=== PATIENT | male | born 2000 | race Caucasian/White ===

== ENCOUNTER 2020-01-10 16:31 | Emergency (ER) | payer OTHER, SELFPAY ==
[2020-01-10 16:42] VITALS: BP 126/77; PULSE 70; RESP 16; TEMP 37; O2SAT 97; BMI 17.9
[2020-01-10] MEDS: SODIUM CHLORIDE 0.9% 1,000 ML 1000 ML IV (18:23)
[2020-01-10] MEDS: ONDANSETRON 4 MG/2 ML INJ IV (18:23)
[2020-01-10 18:30] LABS: Add Manual Diff / Slide Review NO; Basophils Absolute Auto 100 /uL (0-100); Basophils Percent Auto 0.6 % (0-2); Eosinophils Absolute Auto 100 /uL (0-450); Eosinophils Percent Auto 0.7 % (2-4); Hematocrit 45.4 % (41-53); Hemoglobin 15.4 g/dL (13.5-17.5); Lymphocytes Absolute Auto 2700 /uL (1100-4500); Lymphocytes Percent Auto 29.6 % (25-40); Mean Corpuscular HGB Conc 33.9 % (30-36); Mean Corpuscular Hemoglobin 30.2 PG (26-34); Mean Corpuscular Volume 89.1 fL (80-100); Monocytes Absolute Auto 700 /uL (0-900); Monocytes Percent Auto 7.8 % (3-14); Neutrophils Absolute Auto 5500 /uL (1500-7000); Neutrophils Percent Auto 61.3 % (50-75); Platelet Count 255 X10^3/uL (150-400); Red Cell Distribution Width 12.9 % (11.6-14.8)
[2020-01-10 19:33] LABS: Prothrombin Time 11.7 SECONDS (10.1-12.7)
[2020-01-10 19:36] LABS: PTT Partial Thromboplastin Tim 33 SECONDS (26.4-36.2)
[2020-01-10 19:40] LABS: Alanine Aminotransferase 15 IU/L (<50); Albumin Globulin Ratio 1.7 (1.0-2.8); Alkaline Phosphatase 58 U/L (38-126); Aspartate Aminotransferase 24 IU/L (17-59); BUN Creatinine Ratio 13.9 (6-22); Bilirubin Total 0.6 mg/dL (0.2-1.3); Blood Urea Nitrogen 10 mg/dL (9-20); Calcium 8.7 mg/dL (8.4-10.2); Carbon Dioxide 27 mmol/L (22-32); Chloride 106 mmol/L (98-107); Estimated Glomerular Filt Rate > 60.0 mL/min (>60); Globulin 2.4 g/dL (1.7-4.1); Glucose 98 mg/dL (70-100); HEMOLYSIS < 15 (0-50); Lipase 20 U/L (23-300); Sodium 139 mmol/L (137-145); Total Protein 6.4 g/dL (6.3-8.2)
[2020-01-10 19:41] LABS: Ketones (Beta-Hydroxybutyrate) 0.12 mmol/L (<0.27)
[2020-01-10 20:15] VITALS: BP 109/58; PULSE 72; RESP 16; O2SAT 99
--- NOTE | 2020-01-10 21:09 | DI.CT.S_ITS ---
PROCEDURE: CT CHEST ABD PEL W CON INDICATIONS: chest pain, abdominal pain, unexplained weight loss, fatigue TECHNIQUE: After the administration of intravenous contrast, 5 mm thick sections acquired from the lung apices to the symphysis. 5 mm coronal and sagittal reformats were performed, with additional 7 mm MIP reformats through the lungs. For radiation dose reduction, the following was used: automated exposure control, adjustment of mA and/or kV according to patient size. COMPARISON: None. FINDINGS: Image quality: Excellent. CHEST: Lungs and pleura: No acute airspace opacities. No pleural effusions or pneumothorax. Central and peripheral airways appear patent and normal in caliber. Mediastinum: Heart size is normal. No pericardial effusion. No mediastinal or hilar adenopathy by size criteria. Thoracic aorta and central pulmonary arteries are normal in size. Esophagus is normal in caliber. No hiatal hernia. Chest wall: No axillary or supraclavicular adenopathy by size criteria. Thyroid gland is within normal limits where visualized. ABDOMEN: Solid organs: Liver is normal in size and enhancement. Gallbladder is normal. Biliary system is non dilated. Pancreas enhances normally. Spleen is normal in size and enhancement. No adrenal nodules. Kidneys demonstrate normal size and enhancement, without hydronephrosis. Peritoneum and bowel: Bowel loops demonstrate normal wall thickness and caliber. No free fluid or air. The appendix is normal. Nodes and vessels: No retroperitoneal or mesenteric adenopathy by size criteria. Aorta and inferior vena cava are normal in size. Miscellaneous: No ventral hernias. PELVIS: Genitourinary: Bladder wall thickness is normal. Miscellaneous: No inguinal hernias or adenopathy. Bones: No suspicious bony lesions. No vertebral body compression fractures. IMPRESSION: 1. No acute disease process. 2. No lung consolidation or pleural effusions. 3. No free intraperitoneal fluid or air. 4. No dilated loops of bowel. 5. No lymphadenopathy based on size criteria. Dictated by: Zahida Farris MD, PhD on 01/11/2020 at 7:38 Approved by: Zahida Farris MD, PhD on 01/11/2020 at 7:43
--- NOTE | 2020-01-10 22:51 | ED.ABDPAIN ---
HPI - Abdominal Pain General Chief Complaint: Abdominal Pain Stated Complaint: chest and abdominal pain Time Seen by Provider: 01/10/20 18:12 Source: patient Mode of arrival: Ambulatory Limitations: no limitations History of Present Illness HPI narrative: 19-year-old male nonsmoker presents with his mother and a chief complaint ongoing difficulties of episodes of chest pain, abdominal pain and foul-smelling diarrhea for the past few weeks. He had been feeling unwell with nonspecific complaints and had dental pain. He went to his dentist and it was presumed that a dental procedure would help fix the cause of his feeling unwell. In the aftermath he was on 2 weeks of antibiotics and subsequent to that he has developed ongoing abdominal discomfort, poor appetite and foul-smelling diarrhea. He has had no shortness of breath, nausea, vomiting. He has had no fever or chills. He denies any pattern to his abdominal pain. He denies any blood in his stool. He denies recent travel or exposure to bad food. He states he has lost about 11 lb MD complaint: abdominal pain Onset (ago): week(s) Pain Consistency: intermittent Location: diffuse Quality: cramping Radiation: none Relieving factors: nothing Exacerbating factors: nothing Context: recent antibiotic use Related Data Home Medications Medication Instructions Recorded Confirmed No Known Home Medications 01/10/20 01/10/20 Allergies Allergy/AdvReac Type Severity Reaction Status Date / Time No Known Drug Allergies Allergy Verified 01/10/20 16:48 Review of Systems Constitutional Constitutional: Denies chills, Denies fatigue, Denies fever(s), Denies frequent falls, Denies lethargy and Denies weakness Eyes Eyes: Denies change in vision, Denies eye discharge, Denies irritation and Denies loss of vision ENT Ears, Nose, Mouth, and Throat: Denies change in voice, Denies dizziness, Denies neck pain, Denies sore throat and Denies throat swelling Cardiovascular Cardiovascular: Denies chest pain, Denies irregular heart rhythm, Denies lightheadedness, Denies palpitations, Denies dyspnea, Denies dyspnea on exertion and Denies orthopnea Respiratory Respiratory: Denies cough, Denies dyspnea, Denies dyspnea on exertion and Denies wheezing Gastrointestinal Gastrointestinal: Reports abdominal pain, Denies change in bowel habits, Reports diarrhea, Denies nausea and Denies vomiting Musculoskeletal Musculoskeletal: Denies neck pain and Denies numbness Integumentary/Breasts Skin/Breast: Denies pruritus, Denies erythema, Denies rash and Denies wounds Neurologic Neurologic: Denies behavioral changes, Denies confusion, Denies dizziness, Denies frequent falls, Denies loss of vision, Denies numbness and Denies weakness Psychiatric Psychiatric: Denies anxiety, Denies behavioral changes, Denies confusion, Denies depression, Denies homicidal ideation and Denies suicidal ideation Endocrine Endocrine: Denies fatigue, Denies flushing and Denies palpitations Hematologic/Lymphatic Hematologic/Lymphatic: Denies easy bruising Allergic/Immunologic Allergic/Immunologic: Denies urticaria, Denies throat swelling and Denies wheezing Patient History Social History Smoking Status: Current some day smoker Smoking Status: Current some day smoker tobacco type: cigarettes alcohol intake frequency: a few times a month Substance Use Type: does not use Exam Narrative Exam Narrative: GENERAL: [19] year old patient appears stated age. Well-nourished, well-developed patient, in mild distress. HEAD: Atraumatic. Normocephalic. EYES: Pupils equal round and reactive. Extraocular motions intact. No scleral icterus. No injection or drainage. ENT: Nose without bleeding, purulent drainage. Throat without erythema, tonsillar hypertrophy or exudate. Airway patent. NECK: Trachea midline. Non tender CARDIOVASCULAR: Regular rate and rhythm without murmurs, gallops, or rubs. RESPIRATORY: Clear to auscultation. Breath sounds equal bilaterally. No wheezes, rales, or rhonchi. GASTROINTESTINAL: Abdomen soft, non-tender, nondistended. EXTREMITIES: No edema or joint tenderness. BACK: Nontender without deformity or crepitance. No flank tenderness. NEURO: AOx3. SKIN: No rash or erythema of visible areas Initial Vital Signs Initial Vital Signs: Vital Signs Temperature 98.6 F 01/10/20 16:42 Pulse Rate 70 01/10/20 16:42 Respiratory Rate 16 01/10/20 16:42 Blood Pressure 126/77 01/10/20 16:42 Pulse Oximetry 97 01/10/20 16:42 Course Orders Ordered: Discontinued Medications Sodium Chloride (Normal Saline 0.9%) 1,000 mls @ 1,000 mls/hr IV BOLUS ONE Stop: 01/10/20 18:42 Last Infusion: 01/10/20 19:45 Dose: 0 mls/hr Documented by: Admin: 01/10/20 18:23 Dose: 1,000 mls/hr Documented by: SAHIL Ondansetron HCl (Zofran) 4 mg IV NOW ONE Stop: 01/10/20 17:43 Last Admin: 01/10/20 18:23 Dose: 4 mg Documented by: SAHIL Vital Signs Vital signs: Vital Signs - 8 hr 01/10/20 23:03 Pulse Rate 56 L Blood Pressure 100/62 Pulse Oximetry 98 MDM - Abdominal Pain Lab Data Result diagrams: 01/10/20 18:18 01/10/20 19:19 Labs: Lab Results 01/10/20 01/10/20 01/10/20 Range/Units 18:18 19:19 19:19 WBC 9.0 (4.5-11.0) X10^3/uL RBC 5.10 (4.5-5.9) X10^6/uL Hgb 15.4 (13.5-17.5) g/dL Hct 45.4 (41-53) % MCV 89.1 (80-100) fL MCH 30.2 (26-34) PG MCHC 33.9 (30-36) % RDW 12.9 (11.6-14.8) % Plt Count 255 (150-400) X10^3/uL Neut % (Auto) 61.3 (50-75) % Lymph % (Auto) 29.6 (25-40) % [place] % (Auto) 7.8 (3-14) % Eos % (Auto) 0.7 L (2-4) % Baso % (Auto) 0.6 (0-2) % Neut # (Auto) 5500 (3780-3829) /uL Lymph # (Auto) 2700 (5921-8654) /uL [place] # (Auto) 700 (0-900) /uL Eos # (Auto) 100 (0-450) /uL Baso # (Auto) 100 (0-100) /uL PT 11.7 (10.1-12.7) SECONDS INR 1.0 (0.9-1.3) APTT 33 (26.4-36.2) SECONDS Sodium 139 (137-145) mmol/L Potassium 4.0 (3.4-5.1) mmol/L Chloride 106 (98-107) mmol/L Carbon Dioxide 27 (22-32) mmol/L BUN 10 (9-20) mg/dL Creatinine 0.72 (0.66-1.25) mg/dL Estimated GFR > 60.0 (>60) mL/min BUN/Creatinine Ratio 13.9 (6-22) Glucose 98 (70-100) mg/dL Calcium 8.7 (8.4-10.2) mg/dL Total Bilirubin 0.6 (0.2-1.3) mg/dL AST 24 (17-59) IU/L ALT 15 (<50) IU/L Alkaline Phosphatase 58 (38-126) U/L Total Protein 6.4 (6.3-8.2) g/dL Albumin 4.0 (3.5-5.0) g/dL Globulin 2.4 (1.7-4.1) g/dL Albumin/Globulin Ratio 1.7 (1.0-2.8) Lipase 20 L (23-300) U/L Ketones (<0.27) mmol/L C. difficile Tox (PCR) 01/10/20 01/10/20 Range/Units 19:19 19:19 WBC (4.5-11.0) X10^3/uL RBC (4.5-5.9) X10^6/uL Hgb (13.5-17.5) g/dL Hct (41-53) % MCV (80-100) fL MCH (26-34) PG MCHC (30-36) % RDW (11.6-14.8) % Plt Count (150-400) X10^3/uL Neut % (Auto) (50-75) % Lymph % (Auto) (25-40) % [place] % (Auto) (3-14) % Eos % (Auto) (2-4) % Baso % (Auto) (0-2) % Neut # (Auto) (5627-3231) /uL Lymph # (Auto) (1227-0841) /uL [place]ahan # (Auto) (0-900) /uL Eos # (Auto) (0-450) /uL Baso # (Auto) (0-100) /uL PT (10.1-12.7) SECONDS INR (0.9-1.3) APTT (26.4-36.2) SECONDS Sodium (137-145) mmol/L Potassium (3.4-5.1) mmol/L Chloride (98-107) mmol/L Carbon Dioxide (22-32) mmol/L BUN (9-20) mg/dL Creatinine (0.66-1.25) mg/dL Estimated GFR (>60) mL/min BUN/Creatinine Ratio (6-22) Glucose (70-100) mg/dL Calcium (8.4-10.2) mg/dL Total Bilirubin (0.2-1.3) mg/dL AST (17-59) IU/L ALT (<50) IU/L Alkaline Phosphatase (38-126) U/L Total Protein (6.3-8.2) g/dL Albumin (3.5-5.0) g/dL Globulin (1.7-4.1) g/dL Albumin/Globulin Ratio (1.0-2.8) Lipase (23-300) U/L Ketones 0.12 (<0.27) mmol/L C. difficile Tox (PCR) Cancelled Point of care testing: Urine Dip Bedside Urine Glucose Negative Bedside Urine Bilirubin - Negative Bedside Urine Ketone - Negative Urine Specific [place] 1.015 Bedside Urine Occult Blood - Negative Bedside Urine pH 7.0 Bedside Urine Protein - Negative Bedside Urine Urobilinogen - Negative Bedside Urine Nitrite - Negative Bedside Urine Leukocytes - Negative Esterase Imaging Data CT scan - abdomen/pelvis: Radiologist's Impression: No acute findings MDM Narrative Medical decision making narrative: Extensive workup to evaluate patient's complaints. There is concern for possible C diff colitis given recent use of antibiotics, however there is no fever, elevated white blood cell count and patient is unable to produce a stool sample while being in the department for multiple hours. Mother states that a few family members have had lymphoma and as a result it was an easier decision order advanced imaging. There were no significant findings in our workup. Discussion with the patient regarding the possibility of C diff but it is unreasonable to treat without a stool sample provided diagnosis. He is encouraged to obtain follow-up and try to eat drink when he can. Return precautions are given and questions answered to his apparent satisfaction. Discharge Plan Departure Patient Disposition: Home Clinical Impression: Abnormal weight loss Diarrhea Qualifiers: Diarrhea type: unspecified type Qualified Code(s): R19.7 - Diarrhea, unspecified Discharge Date/Time: 01/10/20 23:05 Instructions: Diarrhea, DI for Weight Loss Activity Restrictions/Additional Instructions: *You have been diagnosed with [unplanned weight loss, foul-smelling diarrhea, possible C diff but without a sample it is unclear at this point] *What to do: *Take medications as directed, please add an [id number] probiotic *Follow up with your primary care provider in 2-3 days, call for an appointment. Let them know you were seen in the Emergency Department and that we ask that you be seen in follow up *Return to ER if you should have any new, worsening or concerning symptoms Prescriptions: No Action No Known Home Medications RF: 0 Referrals: [facility] [Outside]
[2020-01-10 23:03] VITALS: BP 100/62; PULSE 56; O2SAT 98
== END 2020-01-10 23:05 | disposition home or self-care (01) ==
PROVIDERS: Emergency Medicine; Emergency Provider Emergency Medicine; Family Provider Pediatrics
DX: R63.4 Abnormal weight loss (principal); R10.9 Unspecified abdominal pain; R19.7 Diarrhea, unspecified; D72.829 Elevated white blood cell count, unspecified; R07.9 Chest pain, unspecified
CPT/HCPCS: 36415; 71260; 74177; 80053; 81003; 82009; 83690; 85025; 85610; 85730; 96361; 96374; 99284; J2405; Q9967

== ENCOUNTER → 2020-01-24 11:37 | Outpatient (CLI) | payer OTHER, MEDICAID, SELFPAY ==
[2020-01-24 13:11] LABS: TSH w/ Reflex to FT4 1.63 uIU/mL (0.47-4.68)
[2020-01-26 13:10] LABS: H. Pylori Antigen Stool Negative (Negative)
[2020-01-27 13:35] LABS: Alanine Aminotransferase 17 IU/L (<50); Albumin 4.7 g/dL (3.5-5.0); Albumin Globulin Ratio 1.7 (1.0-2.8); Alkaline Phosphatase 66 U/L (38-126); Aspartate Aminotransferase 28 IU/L (17-59); BUN Creatinine Ratio 13.8 (6-22); Bilirubin Total 0.7 mg/dL (0.2-1.3); Blood Urea Nitrogen 12 mg/dL (9-20); Carbon Dioxide 29 mmol/L (22-32); Chloride 103 mmol/L (98-107); Estimated Glomerular Filt Rate > 60.0 mL/min (>60); Globulin 2.8 g/dL (1.7-4.1); Glucose 97 mg/dL (70-100); HEMOLYSIS < 15 (0-50); Potassium 4.4 mmol/L (3.4-5.1); Sodium 141 mmol/L (137-145); Total Protein 7.5 g/dL (6.3-8.2)
== END ==
PROVIDERS: Family Provider Pediatrics; PCP Registered Nurse Diabetes Educator; Referring Provider Registered Nurse Diabetes Educator; Visit Provider Registered Nurse Diabetes Educator
DX: R00.2 Palpitations (principal); R07.89 Other chest pain; R14.2 Eructation
CPT/HCPCS: 36415; 80053; 84443; 87338

== ENCOUNTER 2020-01-28 14:27 | Emergency (ER) | payer OTHER, MEDICAID, SELFPAY ==
[2020-01-28] VITALS (9 sets, daily range): BP systolic 105–137; BP diastolic 52–63; PULSE 69–102; RESP 17–18; TEMP 36.7–37.4; O2SAT 96–99; BMI 17.9
[2020-01-28 16:11] LABS: Add Manual Diff / Slide Review NO; Basophils Absolute Auto 0 /uL (0-100); Basophils Percent Auto 0.3 % (0-2); Eosinophils Absolute Auto 0 /uL (0-450); Eosinophils Percent Auto 0.1 % (2-4); Hematocrit 44.2 % (41-53); Lymphocytes Absolute Auto 1300 /uL (1100-4500); Lymphocytes Percent Auto 10.9 % (25-40); Mean Corpuscular HGB Conc 34.1 % (30-36); Mean Corpuscular Hemoglobin 29.8 PG (26-34); Mean Corpuscular Volume 87.6 fL (80-100); Monocytes Absolute Auto 700 /uL (0-900); Monocytes Percent Auto 5.4 % (3-14); Neutrophils Absolute Auto 10300 /uL (1500-7000); Neutrophils Percent Auto 83.3 % (50-75); Platelet Count 258 X10^3/uL (150-400); Red Blood Cell Count 5.04 X10^6/uL (4.5-5.9); Red Cell Distribution Width 12.5 % (11.6-14.8); White Blood Cell Count 12.4 X10^3/uL (4.5-11.0)
[2020-01-28 16:20] LABS: PTT Partial Thromboplastin Tim 33 SECONDS (26.4-36.2)
[2020-01-28 16:23] LABS: Alanine Aminotransferase 24 IU/L (<50); Albumin 4.9 g/dL (3.5-5.0); Albumin Globulin Ratio 1.6 (1.0-2.8); Alkaline Phosphatase 66 U/L (38-126); Amylase 60 U/L (30-110); Aspartate Aminotransferase 31 IU/L (17-59); BUN Creatinine Ratio 19.4 (6-22); Bilirubin Total 0.9 mg/dL (0.2-1.3); Blood Urea Nitrogen 14 mg/dL (9-20); Calcium 9.7 mg/dL (8.4-10.2); Carbon Dioxide 30 mmol/L (22-32); Chloride 101 mmol/L (98-107); Creatine Kinase 140 U/L (55-170); Estimated Glomerular Filt Rate > 60.0 mL/min (>60); Globulin 3.1 g/dL (1.7-4.1); Glucose 89 mg/dL (70-100); HEMOLYSIS < 15 (0-50); Lipase 27 U/L (23-300); Magnesium 1.8 mg/dL (1.6-2.3); Sodium 139 mmol/L (137-145)
[2020-01-28] MEDS: ONDANSETRON 4 MG/2 ML INJ IV (16:24)
[2020-01-28] MEDS: SODIUM CHLORIDE 0.9% 1,000 ML 1000 ML IV (16:24)
[2020-01-28 16:34] LABS: Troponin I < 0.012 ng/mL (0.01-0.034)
[2020-01-28 16:38] LABS: CKMB % Relative Index 0.9 % (1.5-5.0); Creatine Kinase MB 1.19 ng/mL (<2.37)
--- NOTE | 2020-01-28 16:38 | DI.RAD.S_ITS ---
PROCEDURE: XR ACUTE ABDOMEN SERIES INDICATIONS: vomiting, chest pain TECHNIQUE: One view chest and two views of the abdomen were acquired. COMPARISON: None. FINDINGS: Surgical changes and devices: None. Chest: Lungs are clear. Heart size is normal. No pleural effusions. No pneumoperitoneum. Abdomen: Bowel gas pattern is normal. No suspicious calcifications. Visualized solid organ contours appear normal. Bones: No suspicious bony lesions. IMPRESSION: No acute cardiopulmonary findings. No acute intra-abdominal findings. Dictated by: Italia Morin M.D. on 01/28/2020 at 15:59 Approved by: Italia Morin M.D. on 01/28/2020 at 15:59
[2020-01-28] MEDS: KETOROLAC 60 MG/2 ML VIAL 30 MG IV (16:44)
[2020-01-28] MEDS: CYCLOBENZAPRINE 10 MG TABLET PO (18:08)
--- NOTE | 2020-01-28 20:05 | ED.HA ---
HPI - Headache <LAN Maharaj-BC - Last Filed: 01/28/20 20:24> General Chief Complaint: Headache Stated Complaint: SOB, vomiting, pain in neck, headache Time Seen by Provider: 01/28/20 14:57 Source: patient Mode of arrival: Ambulatory Limitations: no limitations History of Present Illness HPI Narrative: The patient is a 19-year-old male who presents with a chief complaint of multiple medical complaints with his mother. Ongoing episodes of chest pain, most recently a chest pain episode about 15 minutes this morning, nausea and vomiting that started at 3:00 a.m. as well as a headache and general neck pain. He states that the neck pain is been going on for weeks and or months. However got much worse this morning his mother is concerned about meningitis. To discuss his neck pain that has been ongoing for months. He has had some low-grade fevers, but is afebrile upon presentation to the emergency department. Primary care providers and working with the patient and has had multiple objectives, referrals, patient has a pending referral to ENT, Holter monitor pending, multiple stool studies pending. He had a negative H pylori stool test, as well as a negative coronavirus test. Related Data Previous Rx's Medication Instructions Recorded omeprazole 20 mg capsule,delayed 20 mg PO DAILY #14 cap 01/13/20 release cyclobenzaprine 10 mg PO TID PRN #14 tab 01/28/20 ketorolac 10 mg PO TID PRN #15 tab 01/28/20 ondansetron 4 mg PO Q6H PRN #20 tab 01/28/20 Allergies Allergy/AdvReac Type Severity Reaction Status Date / Time No Known Drug Allergies Allergy Verified 01/28/20 14:36 Review of Systems <ALEX Maharaj - Last Filed: 01/28/20 20:24> Review of Systems Narrative: GENERAL: See HPI HEENT: Denies sinus pain, ear pain, sore throat, difficulty swallowing, dizziness. RESPIRATORY: Denies dyspnea, cough, wheezing, hemoptysis, sputum. CARDIOVASCULAR: Denies chest pain, palpitations, orthopnea, edema, GASTROINTESTINAL: See HPI : Denies dysuria, frequency, incontinence, hematuria, urinary retention. MUSCULOSKELETAL: See HPI SKIN: Denies rash, skin lesions, or other NEUROLOGIC: See HPI PSYCHIATRIC: No concerning psychosocial issues. 12 point review of systems is negative except for those stated above Patient History <ALEX Maharaj - Last Filed: 01/28/20 20:24> Medical History (Updated 01/28/20 @ 19:18 by ALEX Maharaj) Atypical chest pain (Acute) Belching (Acute) Palpitations (Acute) Social History Smoking Status: Former smoker Smoking Status: Former smoker tobacco type: cigarettes alcohol intake frequency: 0-2 drinks per day Substance Use Type: does not use Exam <ALEX Maharaj - Last Filed: 01/28/20 20:24> Narrative Exam Narrative: GENERAL: Thin alert male in no acute distress. HEAD: Atraumatic. Normocephalic. No temporal or scalp tenderness. EYES: Pupils equal round and reactive. Extraocular motions intact. No scleral icterus. No injection or drainage. ENT: Nose without bleeding, purulent drainage or septal hematoma. Throat without erythema, tonsillar hypertrophy or exudate. Slightly dry mucous membranes Uvula midline. Airway patent. NECK: Trachea midline. No JVD or lymphadenopathy. Supple, nontender, no meningeal signs. Able to fully put chin to chest, look up at ceiling, shake head no Rodriguez. Full range of neck motion noted. CARDIOVASCULAR: Regular rate and rhythm RESPIRATORY: Clear to auscultation. Breath sounds equal bilaterally. No wheezes, rales, or rhonchi. No cough. No increased respiratory effort. No accessory muscle use. GASTROINTESTINAL: Abdomen soft, non-tender, nondistended. No hepato-splenomegaly, or palpable masses. No guarding. Active bowel sounds all 4 quadrants. EXTREMITIES: No clubbing, cyanosis, or edema. No joint tenderness, effusion, or edema noted. BACK: Nontender without deformity or crepitance. No flank tenderness. NEURO: AOx3. SKIN: No rash or erythema on visible skin Initial Vital Signs Initial Vital Signs: Vital Signs Temperature 99.4 F 01/28/20 14:36 Pulse Rate 96 H 01/28/20 14:36 Respiratory Rate 18 01/28/20 14:36 Blood Pressure 116/63 01/28/20 14:36 Pulse Oximetry 98 01/28/20 14:36 <Sophie Galindo MD - Last Filed: 01/29/20 08:32> Initial Vital Signs Initial Vital Signs: Vital Signs Temperature 99.4 F 01/28/20 14:36 Pulse Rate 96 H 01/28/20 14:36 Respiratory Rate 18 01/28/20 14:36 Blood Pressure 116/63 01/28/20 14:36 Pulse Oximetry 98 01/28/20 14:36 Scores <ALEX Maharaj - Last Filed: 01/28/20 20:24> GCS [place] coma scale eye opening: Spontaneous [place] coma scale verbal response: Orientated [place] coma scale motor response: Obey commands [place] coma scale total score: 15 Course <ALEX Maharaj - Last Filed: 01/28/20 20:24> Orders Ordered: Discontinued Medications Cyclobenzaprine HCl (Flexeril) 10 mg PO NOW ONE Stop: 01/28/20 17:33 Last Admin: 01/28/20 18:08 Dose: 10 mg Documented by: LISA Sodium Chloride (Normal Saline 0.9%) 1,000 mls @ 1,000 mls/hr IV BOLUS ONE Stop: 01/28/20 16:19 Last Infusion: 01/28/20 18:08 Dose: 0 mls/hr Documented by: Admin: 01/28/20 16:24 Dose: 1,000 mls/hr Documented by: LANCE Ketorolac Tromethamine (Toradol) 30 mg IV NOW ONE Stop: 01/28/20 16:38 Last Admin: 01/28/20 16:44 Dose: 30 mg Documented by: FRANCISCO Ondansetron HCl (Zofran) 4 mg IV NOW ONE Stop: 01/28/20 15:21 Last Admin: 01/28/20 16:24 Dose: 4 mg Documented by: LANCE Vital Signs Vital signs: Vital Signs - 8 hr 01/28/20 14:36 01/28/20 17:24 01/28/20 17:25 Temperature 99.4 F Pulse Rate 96 H 102 H Respiratory Rate 18 Blood Pressure 116/63 137/60 Pulse Oximetry 98 97 01/28/20 17:30 01/28/20 18:00 01/28/20 18:01 Temperature Pulse Rate 76 91 H 91 H Respiratory Rate 17 Blood Pressure 133/61 105/52 L Pulse Oximetry 99 97 96 01/28/20 18:30 01/28/20 18:58 01/28/20 20:07 Temperature 98.0 F Pulse Rate 85 69 Respiratory Rate 18 Blood Pressure 107/58 L 130/58 L Pulse Oximetry 98 <Sophie Galindo MD - Last Filed: 01/29/20 08:32> Orders Ordered: Discontinued Medications Cyclobenzaprine HCl (Flexeril) 10 mg PO NOW ONE Stop: 01/28/20 17:33 Last Admin: 01/28/20 18:08 Dose: 10 mg Documented by: LISA Sodium Chloride (Normal Saline 0.9%) 1,000 mls @ 1,000 mls/hr IV BOLUS ONE Stop: 01/28/20 16:19 Last Infusion: 01/28/20 18:08 Dose: 0 mls/hr Documented by: Admin: 01/28/20 16:24 Dose: 1,000 mls/hr Documented by: LANCE Ketorolac Tromethamine (Toradol) 30 mg IV NOW ONE Stop: 01/28/20 16:38 Last Admin: 01/28/20 16:44 Dose: 30 mg Documented by: FRANCISCO Ondansetron HCl (Zofran) 4 mg IV NOW ONE Stop: 01/28/20 15:21 Last Admin: 01/28/20 16:24 Dose: 4 mg Documented by: LANCE Vital Signs Vital signs: Vital Signs - 8 hr 01/28/20 14:36 01/28/20 17:24 01/28/20 17:25 Temperature 99.4 F Pulse Rate 96 H 102 H Respiratory Rate 18 Blood Pressure 116/63 137/60 Pulse Oximetry 98 97 01/28/20 17:30 01/28/20 18:00 01/28/20 18:01 Temperature Pulse Rate 76 91 H 91 H Respiratory Rate 17 Blood Pressure 133/61 105/52 L Pulse Oximetry 99 97 96 01/28/20 18:30 01/28/20 18:58 01/28/20 20:07 Temperature 98.0 F Pulse Rate 85 69 Respiratory Rate 18 Blood Pressure 107/58 L 130/58 L Pulse Oximetry 98 MDM - Headache <ALEX Maharaj - Last Filed: 08/28/20 20:24> Medical Records Attestation: I reviewed the patient's medical records. Lab Data Attestation: I reviewed the patient's lab results. Result diagrams: 01/28/20 16:04 01/28/20 16:04 Labs: Lab Results 01/28/20 01/28/20 01/28/20 Range/Units 16:04 16:04 16:04 WBC 12.4 H (4.5-11.0) X10^3/uL RBC 5.04 (4.5-5.9) X10^6/uL Hgb 15.0 (13.5-17.5) g/dL Hct 44.2 (41-53) % MCV 87.6 (80-100) fL MCH 29.8 (26-34) PG MCHC 34.1 (30-36) % RDW 12.5 (11.6-14.8) % Plt Count 258 (150-400) X10^3/uL Neut % (Auto) 83.3 H (50-75) % Lymph % (Auto) 10.9 L (25-40) % Mills % (Auto) 5.4 (3-14) % Eos % (Auto) 0.1 L (2-4) % Baso % (Auto) 0.3 (0-2) % Neut # (Auto) 21800 H (6831-8153) /uL Lymph # (Auto) 1300 (8380-8301) /uL Mills # (Auto) 700 (0-900) /uL Eos # (Auto) 0 (0-450) /uL Baso # (Auto) 0 (0-100) /uL PT 12.0 (10.1-12.7) SECONDS INR 1.0 (0.9-1.3) APTT 33 (26.4-36.2) SECONDS Sodium 139 (137-145) mmol/L Potassium 4.0 (3.4-5.1) mmol/L Chloride 101 (98-107) mmol/L Carbon Dioxide 30 (22-32) mmol/L BUN 14 (9-20) mg/dL Creatinine 0.72 (0.66-1.25) mg/dL Estimated GFR > 60.0 (>60) mL/min BUN/Creatinine Ratio 19.4 (6-22) Glucose 89 (70-100) mg/dL Calcium 9.7 (8.4-10.2) mg/dL Magnesium 1.8 (1.6-2.3) mg/dL Total Bilirubin 0.9 (0.2-1.3) mg/dL AST 31 (17-59) IU/L ALT 24 (<50) IU/L Alkaline Phosphatase 66 (38-126) U/L Total Creatine Kinase 140 (55-170) U/L CK-MB (CK-2) 1.19 (<2.37) ng/mL CK-MB (CK-2) Rel Index 0.9 L (1.5-5.0) % Troponin I < 0.012 (0.01-0.034) ng/mL Total Protein 8.0 (6.3-8.2) g/dL Albumin 4.9 (3.5-5.0) g/dL Globulin 3.1 (1.7-4.1) g/dL Albumin/Globulin Ratio 1.6 (1.0-2.8) Amylase 60 (30-110) U/L Lipase 27 (23-300) U/L Urine Dip Bedside Urine Glucose Negative Bedside Urine Bilirubin - Negative Bedside Urine Ketone +++ 80 Urine Specific [place] 1.015 Bedside Urine Occult Blood - Negative Bedside Urine pH 7.5 Bedside Urine Protein - Negative Bedside Urine Urobilinogen +/- 1mg Bedside Urine Nitrite - Negative Bedside Urine Leukocytes - Negative Esterase Imaging Data Abdominal x-ray: Radiologist's Impression: [address] [place] [id number] XRay Report Signed Patient: Boaz Falk MMR#: [id number] : 2000Acct:[id number] Age/Sex: 19 / MDate of Service: 01/28/20 Loc: ED Accession Number: [id number] Procedure: XR acute abdomen series Ordering Provider: Ivanna Lakhani [employer]- PROCEDURE: XR ACUTE ABDOMEN SERIES INDICATIONS: vomiting, chest pain TECHNIQUE: One view chest and two views of the abdomen were acquired. COMPARISON: None. FINDINGS: Surgical changes and devices: None. Chest: Lungs are clear. Heart size is normal. No pleural effusions. No pneumoperitoneum. Abdomen: Bowel gas pattern is normal. No suspicious calcifications. Visualized solid organ contours appear normal. Bones: No suspicious bony lesions. IMPRESSION: No acute cardiopulmonary findings. No acute intra-abdominal findings. Dictated by: Italia Morin M.D. on 01/28/2020 at 15:59 Approved by: Italia Morin M.D. on 01/28/2020 at 15:59 [facility] Narrative Medical decision making narrative: The patient is a 19-year-old male who presents with a chief complaint of multiple complaints including nausea, vomiting, inability keep down water, shortness of breath/chest pain, neck pain and headache. He has an overall benign exam, is nontoxic appearing and hemodynamically stable in the emergency department. Meningitis was considered however the patient has full range of motion of his neck, is able to touch chin to chest is not confused and is afebrile in the emergency department. We considered coronavirus, though the patient tested -3 days ago so we elected to not be retested here today. His lab work was grossly normal, electrolytes within normal limits, normal acute abdomen exam. After the above-stated therapies the patient felt much better after the above-stated therapies. He was able to tolerate p.o. food and fluids, states that his pain in his neck is completely resolved and fell ready to go home. Given the long duration of his illness, multiple referrals made by PCP free encouraged to follow up with primary care provider in the next few days. I did give him small prescriptions medications that helped improve in the emergency department. Discussed coming back to the ER for any acute concerns such as inability keep down fluids abdominal pain with fever etcetera. Patient has no questions or concerns upon discharge and states understanding of return precautions as well as follow-up care. <Sophie Galindo MD - Last Filed: 01/29/20 08:32> Lab Data Labs: Lab Results 01/28/20 01/28/20 01/28/20 Range/Units 16:04 16:04 16:04 WBC 12.4 H (4.5-11.0) X10^3/uL RBC 5.04 (4.5-5.9) X10^6/uL Hgb 15.0 (13.5-17.5) g/dL Hct 44.2 (41-53) % MCV 87.6 (80-100) fL MCH 29.8 (26-34) PG MCHC 34.1 (30-36) % RDW 12.5 (11.6-14.8) % Plt Count 258 (150-400) X10^3/uL Neut % (Auto) 83.3 H (50-75) % Lymph % (Auto) 10.9 L (25-40) % Mills % (Auto) 5.4 (3-14) % Eos % (Auto) 0.1 L (2-4) % Baso % (Auto) 0.3 (0-2) % Neut # (Auto) 09045 H (9075-9544) /uL Lymph # (Auto) 1300 (9722-2667) /uL Mills # (Auto) 700 (0-900) /uL Eos # (Auto) 0 (0-450) /uL Baso # (Auto) 0 (0-100) /uL PT 12.0 (10.1-12.7) SECONDS INR 1.0 (0.9-1.3) APTT 33 (26.4-36.2) SECONDS Sodium 139 (137-145) mmol/L Potassium 4.0 (3.4-5.1) mmol/L Chloride 101 (98-107) mmol/L Carbon Dioxide 30 (22-32) mmol/L BUN 14 (9-20) mg/dL Creatinine 0.72 (0.66-1.25) mg/dL Estimated GFR > 60.0 (>60) mL/min BUN/Creatinine Ratio 19.4 (6-22) Glucose 89 (70-100) mg/dL Calcium 9.7 (8.4-10.2) mg/dL Magnesium 1.8 (1.6-2.3) mg/dL Total Bilirubin 0.9 (0.2-1.3) mg/dL AST 31 (17-59) IU/L ALT 24 (<50) IU/L Alkaline Phosphatase 66 (38-126) U/L Total Creatine Kinase 140 (55-170) U/L CK-MB (CK-2) 1.19 (<2.37) ng/mL CK-MB (CK-2) Rel Index 0.9 L (1.5-5.0) % Troponin I < 0.012 (0.01-0.034) ng/mL Total Protein 8.0 (6.3-8.2) g/dL Albumin 4.9 (3.5-5.0) g/dL Globulin 3.1 (1.7-4.1) g/dL Albumin/Globulin Ratio 1.6 (1.0-2.8) Amylase 60 (30-110) U/L Lipase 27 (23-300) U/L Urine Dip Bedside Urine Glucose Negative Bedside Urine Bilirubin - Negative Bedside Urine Ketone +++ 80 Urine Specific [place] 1.015 Bedside Urine Occult Blood - Negative Bedside Urine pH 7.5 Bedside Urine Protein - Negative Bedside Urine Urobilinogen +/- 1mg Bedside Urine Nitrite - Negative Bedside Urine Leukocytes - Negative Esterase Discharge Plan Departure Patient Disposition: Home Clinical Impression: Neck pain Headache Qualifiers: Headache type: unspecified Headache chronicity pattern: unspecified pattern Intractability: not intractable Qualified Code(s): R51 - Headache Nausea & vomiting Qualifiers: Vomiting type: unspecified Vomiting Intractability: non-intractable Qualified Code(s): R11.2 - Nausea with vomiting, unspecified Discharge Date/Time: 01/28/20 20:08 Instructions: DI for Nausea -- Adult, DI for Vomiting -- Adult, DI for Headache, DI for Neck Pain Activity Restrictions/Additional Instructions: Thank you for trusting us with your care today. As discussed, your lab work and imaging came back well. Please follow-up with Kit Zimmerman in the next few days. I sent 3 prescriptions to [facility]. I have given you a prescription of Toradol. This is an NSAID. Do not combine it with other NSAIDs such as Aleve or ibuprofen. I suggest taking it with some food, as it can irritate your stomach. I also sent a prescription of ondansetron for nausea. Be aware that this can be constipating. I also sent a prescription of cyclobenzaprine, which is a muscle relaxer. Please do not take this and drive or take in drink alcohol as it can be sedating. Please come back to the emergency department for any acute concerns. Prescriptions: New cyclobenzaprine 10 mg tablet 10 mg PO TID PRN (Reason: muscle spasm) Qty: 14 RF: 0 ketorolac 10 mg tablet 10 mg PO TID PRN (Reason: pain) Qty: 15 RF: 0 ondansetron 4 mg tablet,disintegrating 4 mg PO Q6H PRN (Reason: nausea and vomiting) Qty: 20 RF: 0 No Action omeprazole 20 mg capsule,delayed release(DR/EC) 20 mg PO DAILY Qty: 14 RF: 0 Referrals: Kit Zimmerman ARNP [Primary Care Provider] - <Sophie Galindo MD - Last Filed: 01/29/20 08:32> Cosign ED Attending Cosignature Attestation: I was immediately available in the department for consultation throughout this patient's visit. I agree with documentation as above. Sophie Galindo MD
== END 2020-01-28 20:08 | disposition home or self-care (01) ==
PROVIDERS: Emergency Provider Nurse Practitioner Family; Family Provider Pediatrics; PCP Registered Nurse Diabetes Educator
DX: M54.2 Cervicalgia (principal); R11.2 Nausea with vomiting, unspecified; R51 Headache; R06.02 Shortness of breath; R07.9 Chest pain, unspecified
CPT/HCPCS: 36415; 74022; 80053; 81003; 82150; 82550; 82553; 83690; 83735; 84484; 85025; 85610; 85730; 93005; 96361; 96374; 96375; 99284; J1885; J2405

== ENCOUNTER → 2020-06-11 15:39 | Outpatient (CLI) | payer OTHER, MEDICAID, SELFPAY ==
[2020-06-11 16:20] LABS: COVID19 -Nasal RAPID Negative (Negative)
== END ==
PROVIDERS: Family Provider Pediatrics; PCP Registered Nurse Diabetes Educator; Visit Provider Nurse Practitioner
DX: J02.9 Acute pharyngitis, unspecified (principal); Z20.822 Contact with and (suspected) exposure to COVID-19
CPT/HCPCS: 87070; 87635

== ENCOUNTER → 2021-06-20 09:31 | Outpatient (CLI) | payer OTHER, MEDICAID, SELFPAY ==
[2021-06-20 10:58] LABS: COVID19 -Nasal RAPID POSITIVE (Negative)
== END ==
PROVIDERS: Family Provider Pediatrics; PCP Registered Nurse Diabetes Educator; Referring Provider Nurse Practitioner Family; Visit Provider Nurse Practitioner Family
DX: U07.1 COVID-19 (principal); Z20.822 Contact with and (suspected) exposure to COVID-19
CPT/HCPCS: 87635; C9803